=== PATIENT | male | born 1985 | race Caucasian/White ===

== ENCOUNTER 2017-11-17 12:20 | Inpatient (IN) | payer OTHER ==
[2017-11-17] VITALS (7 sets, daily range): BP systolic 108–162; BP diastolic 70–90
[~2017-11-17] VITALS: Ht 180.3 cm; Wt 162.2 kg
--- NOTE | ~2017-11-17 | EKG ---
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
--- NOTE | ~2017-11-17 | CATHLAB ---
[facility] [address] [place] [address] INVASIVE PROCEDURE REPORT Name: MIKE BARBER JR Room #: 212-[facility] ..#: [id number] Admission: 11/17/17 Attend Phys: Marco Duenas, Discharge: Date of : 85 Date of Service: 11/20/17 1451 Report #: [id number] THIS REPORT FOR: //name// APPROVED REPORT Study performed: 11/20/2017 07:01:10 Patient Details Patient Status: In-Patient Room #: The patient is a 32 year-old male Event Personnel Marin Montenegro Adjunct Psychology Professor, Solis Hearn RN RN, Jose Manuel Malik, Sera Gomez Scrub Procedures Performed Left Heart Cath w/or w/o Coronaries [id number] [facility] Indication Abnormal ECG, Dyspnea, Positive stress test, Chest pain Risk Factors Obesity, HypercholesterolemiaPhysical Activity Procedure Narrative The Right Groin^ was infiltrated with 1% Lidocaine subcutaneous anesthesia. A PINNACLE 4FR Sheath #[id number] sheath was inserted into the . Coronary angiography was performed using coronary diagnostic catheters. The right coronary system was accessed and visualized with a JR4 catheter. The left coronary system was accessed and visualized with a JL4 catheter. The left ventricle was accessed and visualized with a PIGTAIL catheter. Left ventricular/Aortic Valve gradient assessed via catheter pullback. Left ventriculogram was performed in 30 degree projection. Closure device was deployed with a 5 Fr MYNXGRIP 5F #[id number]. There was no hematoma. Intraoperative Conscious Sedation Sedation start time: 7.44 Case end Time: 8.02 Fluoro Time: 5.18 minutes Dose: DAP 18563 cGycm2 1432 mGy Contrast Type and Amount: Omnipaque 90 ml Coronary Angiography The patient's coronary anatomy is right dominant. [facility] [place] [address] [place] [address] INVASIVE PROCEDURE REPORT Name: MIKE BARBER Room #: 212-P [facility] M.R.#: [id number] Admission: 11/17/17 Attend Phys: Marco Duenas, Discharge: Date of : 85 Date of Service: 11/20/17 1451 Report #: [id number] Diagnostic Cath LAD Moderate to large size caliber vessel, appears angiographically normal. Diagonal 1 Small caliber vessel, with no flow-limiting lesions. Circumflex Moderate size caliber vessel, appears angiographically normal. OM1 Moderate size caliber vessel, supplies several branches as it travels down the lateral wall. Appears angiographically normal. Right Coronary Dominant vessel, with no flow-limiting lesions. The distal segment appears ectatic. R PDA Small-caliber vessel, with no flow-limiting lesions. RPLV Small-caliber vessel, with no flow-limiting lesions. Hemodynamics The aortic pressure is 115/83 mmHg with a mean of 98 mmHg. The left ventricular pressure is 129/21 mmHg with a mean of mmHg. The left ventricular end diastolic pressure is 25 mmHg. Conclusion 1. No evidence for coronary artery disease. 2. Right dominant system. 3. Ectatic region in the distal RCA. 4. Recommend medical therapy. <ELECTRONICALLY SIGNED> By: Marin Montenegro MD 11/20/17 1451 145 145 Marin Montenegro MD /INF
--- NOTE | ~2017-11-17 | EKG ---
[address] [address] ELECTROCARDIOGRAM REPORT Name: MIKE BARBER Room #: 212-P ADM IN M.R.#: [id number] Admission: 11/17/17 Attend Phys: Marco Duenas MD Discharge: Date of : 85 Report #: [id number] THIS REPORT FOR: //name// [facility] ED Test Date: 2017-11-17 Test Time: 14:46:10 Pat Name: MIKE BARBER Department: Room: Gender: M Contact Representative: PONCHO : 1985 Requested By: Tran Denis Order Number: [id number] MD: Christiano Novak Measurements Intervals [place] Rate: 79 P: [place]: QRS: -1 QRSD: 86 T: 11 QT: 360 QTc: 413 Interpretive Statements Atrial fibrillation ST elev, probable normal early repol pattern No previous ECG available for comparison Electronically Signed On 11-18-2017 7:03:58 CDT by Christiano Novak [email or web address] <ELECTRONICALLY SIGNED> By: Christiano Novak MD 11/18/17 0703 1446 1446 Christiano Novak MD /CLOTILDE
--- NOTE | ~2017-11-17 | 2DMMODE ---
[facility] [address] [place] [address] 2 D/M-MODE ECHOCARDIOGRAM Name: MIKE BARBER Room #: 212-P ADM IN M.R.#: [id number] Admission: 11/17/17 Attend Phys: Marco Duenas, Discharge: Date of : 85 Date of Service: 11/18/17 1129 Report #: [id number] THIS REPORT FOR: //name// APPROVED REPORT Study performed: 11/18/2017 10:01:49 EXAM: Comprehensive 2D, Doppler, and color-flow Echocardiogram Patient Location: Echo lab Room #: 212 Status: routine BSA: 2.70 HR: 65 bpm BP: 127/76 mmHg Other Information Study Quality: Good Indications Atrial Fibrillation Chest Pain Hypertension/HDD 2D Dimensions RVDd: 37.34 mm LVEF(%): 62.51 (>50%) IVSd: 13.31 (7-11mm) LVOT Diam: 23.74 (18-24mm) LVDd: 49.50 mm PWd: 14.14 (7-11mm) Ascending Ao: 28.77 (22-36mm) LVDs: 32.74 (25-40mm) Aortic Root: 36.78 mm IVC: 16.00 mm Asencio's LVEF: 62.51 % Volumes Left Atrial Volume (Systole) Single Plane 4CH: 42.81 mL Single Plane 2CH: 53.74 mL LA ESV Index: 20.00 mL/m2 Aortic Valve AoV Peak Carlo.: 1.30 m/s AO Peak Gr.: 6.80 mmHg LVOT Max P.05 mmHg LVOT Max V: 1.12 m/s AN Vmax: 3.81 cm2 Mitral Valve E/A Ratio: 1.3 [facility] [employer] [place] [address] 2 D/M-MODE ECHOCARDIOGRAM Name: MIKE BARBER Room #: 212-P [facility] IN M.R.#: [id number] Admission: 11/17/17 Attend Phys: Marco Duenas, Discharge: Date of : 85 Date of Service: 11/18/17 1129 Report #: [id number] MV Decel. Time: 192.82 ms MV E Max Carlo.: 0.70 m/s MV A Carlo.: 0.56 m/s MV PHT: 55.92 ms IVRT: 69.20 ms Pulmonary Valve PV Peak Carlo.: 1.23 m/s PV Peak Gr.: 6.20 mmHg Pulmonary Vein P Vein S: 0.43 m/s P Vein A: 0.15 m/s P Vein D: 0.28 m/s P Vein A Dur.: 92.3 msec P Vein S/D Ratio: 1.54 Tricuspid Valve TR Peak Carlo.: 2.06 m/s TR Peak Gr.: 17.01 mmHg PA Pressure: 22.00 mmHg Left Ventricle The left ventricle is normal size. There is normal LV segmental wall motion. Mild concentric left ventricular hypertrophy. The left ventricular systolic function is normal. The left ventricular ejection fraction is within the normal range. LVEF is 60-65%. The left ventricular diastolic function is normal. Right Ventricle The right ventricle is normal size. The right ventricular systolic function is normal. Atria The left atrium size is normal. The right atrium size is normal. Aortic Valve The aortic valve is normal in structure. No aortic regurgitation is present. There is no aortic valvular stenosis. Mitral Valve The mitral valve is normal in structure. There is no mitral valve regurgitation noted. No evidence of mitral valve stenosis. Tricuspid Valve The tricuspid valve is normal in structure. There is trace tricuspid regurgitation. Estimated PAP 22 mmHg. There is no pulmonary [place] [address] 2 D/M-MODE ECHOCARDIOGRAM Name: ELISABETHMIKEZena CORREIA Room #: 212-P [facility] IN ..#: [id number] Admission: 11/17/17 Attend Phys: Marco Duenas, Discharge: Date of : 85 Date of Service: 11/18/17 1129 Report #: [id number] Pulmonic Valve The pulmonary valve is normal in structure. Trace pulmonic regurgitation. Great Vessels The aortic root is normal in size. IVC is normal in size and collapses >50% with inspiration. Pericardium There is no pericardial effusion. <Conclusion> The left ventricular systolic function is normal. There is normal LV segmental wall motion. LVEF 60-65%. The left ventricular diastolic function is normal. The aortic valve is normal in structure. No aortic regurgitation The mitral valve is normal in structure. No mitral valve regurgitation noted. There is trace tricuspid regurgitation. Estimated pulmonary artery pressure of 22 mmHg. There is no pericardial effusion. <ELECTRONICALLY SIGNED> By: Christian Mondragon MD, FACC 11/18/17 1129 1129 1129 Christian Mondragon MD, FACC /INF
[2017-11-17 12:57] LABS: ABSOLUTE NEUTROPHILS 4.4 thou/uL (1.4-8.2); BASOPHILS 0.5 % (0.0-2.0); EOSINOPHILS 2.6 % (0.0-3.0); HEMATOCRIT 47.3 % (42.0-52.0); HEMOGLOBIN 15.7 gm/dL (14.0-18.0); LYMPHOCYTES 29.6 % (24.0-44.0); MCH 31.5 pg (26.0-34.0); MCHC 33.2 g/dL (28.0-37.0); MCV 94.8 fL (80.0-100.0); MONOCYTES 8.8 % (1.0-8.0); PLATELET COUNT 217 thou/uL (150-400); POLYS 58.5 % (36.0-66.0); RBC 4.99 mil/uL (4.50-6.00); RDW 11.7 % (10.5-14.5); WBC 7.4 thou/uL (4.0-11.0)
[2017-11-17 13:04] LABS: ANION GAP 2 mmol/L (7-16); BUN 12 mg/dL (7-18); CHLORIDE 106 mmol/L (98-107); CO2 29 mmol/L (21-32); CREATININE 1.2 mg/dL (0.7-1.3); GLUCOSE 96 mg/dL (74-106); POTASSIUM 4.1 mmol/L (3.5-5.1); SODIUM 137 mmol/L (136-145)
[2017-11-17 13:13] LABS: CALCIUM 8.9 mg/dL (8.5-10.1); TROPONIN-I < 0.04 ng/mL (<0.06)
[2017-11-17 19:36] LABS: CHOLESTEROL 159 mg/dL (<200); HDL CHOLESTEROL 33 mg/dL (>40); LDL CHOLESTEROL 119 mg/dL (<100); TC:HDL 4.8 Ratio (Not establshd); TRIGLYCERIDE 37 mg/dL (<150); VLDL 7 mg/dL (<40)
[2017-11-18 03:41] VITALS: BP 110/74
[2017-11-18 04:12] LABS: CALCIUM 8.8 mg/dL (8.5-10.1); CREATININE 1.1 mg/dL (0.7-1.3); MAGNESIUM 1.9 mg/dL (1.8-2.4); POTASSIUM 4.4 mmol/L (3.5-5.1)
[2017-11-18 05:34] LABS: HEMATOCRIT 44.7 % (42.0-52.0); HEMOGLOBIN 14.4 gm/dL (14.0-18.0); MCHC 32.2 g/dL (28.0-37.0); MCV 96.4 fL (80.0-100.0); RBC 4.64 mil/uL (4.50-6.00); RDW 12.1 % (10.5-14.5); WBC 7.9 thou/uL (4.0-11.0)
[2017-11-18 07:43] VITALS: BP 127/76
[2017-11-18 11:22] VITALS: BP 119/78
[2017-11-18 15:38] VITALS: BP 115/74
[2017-11-18 20:10] VITALS: BP 107/76
[2017-11-18 23:26] VITALS: BP 127/72
[2017-11-19] VITALS (7 sets, daily range): BP systolic 108–136; BP diastolic 62–84
[2017-11-19 04:15] LABS: CALCIUM 9.1 mg/dL (8.5-10.1); CREATININE 1.2 mg/dL (0.7-1.3); POTASSIUM 4.4 mmol/L (3.5-5.1)
[2017-11-19 04:27] LABS: HEMATOCRIT 43.6 % (42.0-52.0); HEMOGLOBIN 14.5 gm/dL (14.0-18.0); MCH 31.8 pg (26.0-34.0); MCHC 33.2 g/dL (28.0-37.0); MCV 95.6 fL (80.0-100.0); RBC 4.56 mil/uL (4.50-6.00); RDW 12.1 % (10.5-14.5); WBC 7.4 thou/uL (4.0-11.0)
[2017-11-20 03:01] LABS: HEMOGLOBIN 14.5 gm/dL (14.0-18.0); MCH 31.4 pg (26.0-34.0); MCHC 32.9 g/dL (28.0-37.0); MCV 95.5 fL (80.0-100.0); RBC 4.61 mil/uL (4.50-6.00); RDW 11.9 % (10.5-14.5); WBC 7.5 thou/uL (4.0-11.0)
[2017-11-20 03:23] LABS: CALCIUM 8.6 mg/dL (8.5-10.1); CREATININE 1.2 mg/dL (0.7-1.3); MAGNESIUM 1.9 mg/dL (1.8-2.4); POTASSIUM 3.9 mmol/L (3.5-5.1)
[2017-11-20 04:25] VITALS: BP 115/84
[2017-11-20 08:33] VITALS: BP 117/68
[2017-11-20] MEDS ORDERED: LIPITOR 20 MG T20 M1 PO (14:39)
[2017-11-20] MEDS ORDERED: ASPIR 8181 MG PO (14:40)
[2017-11-20] MEDS ORDERED: METOPROLOL SUCC25 M1 PO (14:40)
[2017-11-20 15:15] VITALS: BP 117/68
[2017-11-20 15:19] VITALS: BP 116/79
== END 2017-11-20 16:30 | disposition home or self-care (01) | DRG 287 ==
LOC: ER 12:20 → 2N 14:58 → EROBS 14:58 → 2N 15:38 → ENTRNSPT 11-20 16:23 → 2N 11-20 16:30
PROVIDERS: Emergency Medicine; Internal Medicine
PROC: B2111ZZ Fluoroscopy of Multiple Coronary Arteries using Low Osmolar Contrast (ICD-10-PCS; principal; 2017-11-20)
PROC: 4A023N7 Measurement of Cardiac Sampling and Pressure, Left Heart, Percutaneous Approach (ICD-10-PCS; principal; 2017-11-20)
DX: I48.91 Unspecified atrial fibrillation (principal); Z68.42 Body mass index [BMI] 45.0-49.9, adult; E66.01 Morbid (severe) obesity due to excess calories; I10 Essential (primary) hypertension; E78.5 Hyperlipidemia, unspecified; R94.6 Abnormal results of thyroid function studies; G47.33 Obstructive sleep apnea (adult) (pediatric); Z79.82 Long term (current) use of aspirin; Z79.899 Other long term (current) drug therapy; Z91.040 Latex allergy status
CPT/HCPCS: 10194

== ENCOUNTER 2018-05-14 11:25 | Emergency (ER) | payer OTHER ==
[~2018-05-14] VITALS: Ht 180.3 cm; Wt 156.5 kg
[~2018-05-14 11:25] MED LIST: ASPIR 8181 MG PO; LIPITOR 20 MG T20 M1 PO; METOPROLOL SUCC25 M1 PO
[2018-05-14 11:30] VITALS: BP 134/84
[2018-05-14] MEDS ORDERED: ULTRAM 50MG TAB50 MG PO (12:59)
[2018-05-14] MEDS ORDERED: MOBIC7.5 MG PO (12:59)
== END 2018-05-14 13:30 | disposition home or self-care (01) ==
LOC: ER 11:25
DX: M72.2 Plantar fascial fibromatosis (principal); Z91.040 Latex allergy status

== ENCOUNTER 2019-04-20 11:33 | Emergency (ER) | payer OTHER ==
[~2019-04-20] VITALS: Ht 177.8 cm; Wt 140.6 kg
[~2019-04-20 11:33] MED LIST changes: +MOBIC7.5 MG PO; +ULTRAM 50MG TAB50 MG PO
[2019-04-20] MEDS ORDERED: NAPROSYN500 MG PO (12:53)
[2019-04-20 13:04] VITALS: BP 120/86
== END 2019-04-20 13:05 | disposition home or self-care (01) ==
LOC: ER 11:33
DX: S93.492A Sprain of other ligament of left ankle, initial encounter (principal); Z91.040 Latex allergy status; Z91.041 Radiographic dye allergy status; W18.41XA Slipping, tripping and stumbling without falling due to stepping on object, initial encounter; Y93.89 Activity, other specified; Y92.89 Other specified places as the place of occurrence of the external cause; Y99.8 Other external cause status

== ENCOUNTER → 2020-11-04 | Outpatient (CLI) | payer OTHER ==
[~2020-11-04] MED LIST changes: +NAPROSYN500 MG PO
== END ==
LOC: ULTRA 10:15
PROVIDERS: ATTEND Nurse Practitioner
DX: N63.20 Unspecified lump in the left breast, unspecified quadrant (principal)